=== PATIENT | female | born 1975 | race Caucasian/White ===

== ENCOUNTER 2016-08-18 15:29 | Emergency (ER) | payer SELFPAY ==
[2016-08-18 15:39] VITALS: BP 153/81
--- NOTE | 2016-08-18 15:42 | ER Document Report ---
ED Medical Screen (RME) - General Chief Complaint: Elbow Injury Stated Complaint: ELBOW PAIN Mode of Arrival: Ambulatory Information source: Patient Notes: Patient states 2 months ago she was diagnosed with tenderness although. Patient reports hitting her right elbow today while attempting to play [employer]. I have greeted and performed a rapid initial assessment of this patient. A comprehensive ED assessment and evaluation of the patient, analysis of test results and completion of the medical decision making process will be conducted by additional ED providers. TRAVEL OUTSIDE OF THE [place] IN LAST 30 DAYS: No - Related Data Allergies/Adverse Reactions: penicillin V potassium [From Pen-Vee K] Allergy (Verified 08/18/16 15:37) Past Medical History - Social History Chew tobacco use (# tins/day): No Frequency of alcohol use: None Drug Abuse: None Renal/ Medical History: Denies: Hx Peritoneal Dialysis Past Surgical History: Reports: Hx Tubal Ligation - Immunizations Immunizations up to date: Yes Hx Diphtheria, Pertussis, Tetanus Vaccination: Yes Physical Exam - Vital signs Vitals: Temp Pulse Resp BP Pulse Ox 98.2 F 93 20 153/81 H 96 08/18/16 15:38 08/18/16 15:38 08/18/16 15:38 08/18/16 15:38 08/18/16 15:38 - Extremities General upper extremity: Tender - Right elbow Course - Vital Signs Vital signs: Temp Pulse Resp BP Pulse Ox 98.2 F 93 20 153/81 H 96 08/18/16 15:38 08/18/16 15:38 08/18/16 15:38 08/18/16 15:38 08/18/16 15:38
--- NOTE | 2016-08-18 16:44 | ER Document Report ---
HPI - HPI Patient complains to provider of: hit right elbow Onset: This afternoon Onset/Duration: Sudden Quality of pain: Throbbing Pain Level: 4 Context: 40 yo female with chronic right elbow tendonitis hit it on a chair causing increased pain and swelling. Xray has already when done. Associated Symptoms: None Exacerbated by: Movement Relieved by: Denies - ROS ROS below otherwise negative: Yes Systems Reviewed and Negative: Yes All other systems reviewed and negative - REPRODUCTIVE Reproductive: DENIES: : - DERM Skin Color: Normal Past Medical History - General Information source: Patient - Social History Smoking Status: Current Every Day Smoker Chew tobacco use (# tins/day): No Frequency of alcohol use: None Drug Abuse: None Lives with: Family Family History: Reviewed & Not Pertinent, DM, Hypertension, Malignancy Patient has suicidal ideation: No Patient has homicidal ideation: No - Medical History Medical History: Negative Renal/ Medical History: Denies: Hx Peritoneal Dialysis Surgical Hx: Negative Past Surgical History: Reports: Hx Tubal Ligation - Immunizations Immunizations up to date: Yes Hx Diphtheria, Pertussis, Tetanus Vaccination: Yes Vertical Provider Document - CONSTITUTIONAL Agree With Documented VS: Yes Exam Limitations: No Limitations General Appearance: No Apparent Distress - INFECTION CONTROL TRAVEL OUTSIDE OF THE [place] IN LAST 30 DAYS: No - HEENT HEENT: Normocephalic - NECK Neck: Supple - RESPIRATORY O2 Sat by Pulse Oximetry: 96 - BACK Back: Normal Inspection - MUSCULOSKELETAL/EXTREMETIES Musculoskeletal/Extremeties: MAEW, FROM, Tender - medial right soft tissue, not red, not hot, not swollen, No Edema. negative: Eccymosis - NEURO Level of Consciousness: Awake, Alert Motor/Sensory: No Motor Deficit, No Sensory Deficit - DERM Integumentary: Warm, Dry, No Rash Notes: n/v intact, 2 + radial pulse Course - Vital Signs Vital signs: Temp Pulse Resp BP Pulse Ox 98.2 F 93 20 153/81 H 96 08/18/16 15:38 08/18/16 15:38 08/18/16 15:38 08/18/16 15:38 08/18/16 15:38 Procedures - Immobilization Right Arm Time completed: 16:50 Pre-Proc Neuro Vasc Exam: Normal Immobilizer type: Sling Performed by: PCT Post-Proc Neuro Vasc Exam: Normal Alignment checked and good: Yes Discharge - Discharge Clinical Impression: Contusion of right elbow Qualifiers: Encounter type: initial encounter Qualified Code(s): S50.01XA - Contusion of right elbow, initial encounter Condition: Good Disposition: HOME, SELF-CARE Instructions: Temporary Sling ([facility]), Ultram ([facility]) Additional Instructions: cool compress continue the naproxsyn sling for a few days see orthopedic doctor if persists Prescriptions: Tramadol HCl [Ultram 50 mg Tablet] 50 mg PO ASDIR PRN #20 tablet PRN Reason: Forms: Return to Work Referrals: ARDEN KNAPP MD [ACTIVE STAFF] - Follow up as needed
== END 2016-08-18 17:06 | disposition home or self-care (01) ==
LOC: ER 15:29
DX: S50.01XA Contusion of right elbow, initial encounter (principal); M25.521 Pain in right elbow; F17.200 Nicotine dependence, unspecified, uncomplicated; W22.03XA Walked into furniture, initial encounter; Z98.51 Tubal ligation status
CPT/HCPCS: 99283

== ENCOUNTER 2017-04-18 17:21 | Emergency (ER) | payer SELFPAY ==
[2017-04-18 17:27] VITALS: BP 148/84
--- NOTE | 2017-04-18 19:19 | ER Document Report ---
ED General - General Chief Complaint: Leg Swelling Stated Complaint: LEG SWELLING Time Seen by Provider: 04/18/17 17:36 TRAVEL OUTSIDE OF THE [place] IN LAST 30 DAYS: No - HPI Patient complains to provider of: Left leg swelling Notes: Patient is coming in for evaluation of left leg swelling. Patient states is been ongoing for greater than a month. Patient states left leg swelling off and on was evaluated back in August for swelling states had a Doppler done that time no signs of DVT. Patient is states that she is followed up with [facility] is been placed on hydrochlorothiazide to help relieve some swelling patient denies any injury to the leg. Patient states sometimes it will weep patient states that there are started becoming changes to her skin. Denies any fevers chills nausea vomiting denies any trauma to the leg. - Related Data Allergies/Adverse Reactions: penicillin V potassium [From Pen-Vee K] Allergy (Verified 04/18/17 17:27) Past Medical History - Social History Smoking Status: Current Every Day Smoker Chew tobacco use (# tins/day): No - 1ppd Frequency of alcohol use: Rare Drug Abuse: None Family History: Reviewed & Not Pertinent, DM, Hypertension, Malignancy Renal/ Medical History: Denies: Hx Peritoneal Dialysis Past Surgical History: Reports: Hx Tubal Ligation - Immunizations Immunizations up to date: Yes Hx Diphtheria, Pertussis, Tetanus Vaccination: Yes Review of Systems - Review of Systems Constitutional: No symptoms reported EENT: No symptoms reported Cardiovascular: No symptoms reported Respiratory: No symptoms reported Gastrointestinal: No symptoms reported Genitourinary: No symptoms reported Female Genitourinary: No symptoms reported Musculoskeletal: Leg swelling Skin: No symptoms reported Hematologic/Lymphatic: No symptoms reported Neurological/Psychological: No symptoms reported -: Yes All other systems reviewed and negative Physical Exam - Vital signs Vitals: Temp Pulse Resp BP Pulse Ox 98.5 F 89 18 148/84 H 97 04/18/17 17:26 04/18/17 17:26 04/18/17 17:26 04/18/17 17:26 04/18/17 17:26 Interpretation: Normal - General General appearance: Appears well, Alert - HEENT Head: Normocephalic, Atraumatic Eyes: Normal Pupils: PERRL - Respiratory Respiratory status: No respiratory distress Chest status: Nontender Breath sounds: Normal Chest palpation: Normal - Cardiovascular Rhythm: Regular Heart sounds: Normal auscultation Murmur: No - Abdominal Inspection: Normal Distension: No distension Bowel sounds: Normal Tenderness: Nontender Organomegaly: No organomegaly - Back Back: Normal, Nontender - Extremities General upper extremity: Normal inspection, Nontender, Normal color, Normal ROM , Normal temperature General lower extremity: Normal inspection, Nontender, Normal color, Normal ROM , Normal temperature, Normal weight bearing, Nallely's sign. No: Edema - Significant edema to both legs left leg greater than right. Patient has venous stasis changes. Patient's leg is quite swollen consistent with possible lymphedema. - Neurological Neuro grossly intact: Yes Cognition: Normal Orientation: AAOx4 [place] Coma Scale Eye Opening: Spontaneous [place] Coma Scale Verbal: Oriented Rhonda Coma Scale Motor: Obeys Commands Rhonda Coma Scale Total: 15 Speech: Normal Motor strength normal: LUE, RUE, LLE, RLE Sensory: Normal - Psychological Associated symptoms: Normal affect, Normal mood - Skin Skin Temperature: Warm Skin Moisture: Dry Skin Color: Normal Course - Re-evaluation Re-evalutation: 04/18/17 19:17 Doppler is negative no signs of cellulitis. Patient was educated about compression stockings or wrapping the leg and Omid bandage to help out with more likely underlying lymphedema. Patient will be discharged home follow-up primary care physician. - Vital Signs Vital signs: Temp Pulse Resp BP Pulse Ox 98.5 F 89 18 148/84 H 97 04/18/17 17:26 04/18/17 17:26 04/18/17 17:26 04/18/17 17:26 04/18/17 17:26 Discharge - Discharge Clinical Impression: Leg swelling Condition: Good Instructions: Lymphedema ([facility]), Dependent Edema ([facility]) Additional Instructions: Follow-up with primary care physician. Return to ER symptoms worsen. Your examination is consistent with possible developing lymphedema. I will discussed this with your primary care physician. Prescriptions: Compress.stocking,Knee,Reg,Lrg [Truform Compression Stocking] 1 each MC DAILY # 1 each
--- NOTE | 2017-04-19 11:38 | XCELERA REPORT ---
[address] [address] Lower Extremity Venous Evaluation Name: LORENA MATA Age: 41 yrs Gender: Female : 1975 Patient Status: Emergency Patient Location: ER Study Date: 04/18/2017 06:50 PM Procedure: Color flow and duplex imaging of the veins of the left lower extremity as well as the right Common Femoral vein. Reason For Study: left leg swelling Ordering Physician: CHRISTINE ORTIZ Performed By: Emmie Power Right Sided Venous Evaluation The right common femoral vein is fully compressible. Spontaneous and phasic flow is present in the right common femoral vein. Left Sided Venous Evaluation Normal vessel filling wall to wall, compression and augmentation as well as Colour flow down to the infrageniculate veins. Interpretation Summary No duplex evidence of DVT or obstruction in the left lower extremity nor in the right Common Femoral vein. : CHRISTINE ORTIZ > Gabe Swain
== END 2017-04-18 19:32 ==
LOC: ER 17:21
DX: M79.89 Other specified soft tissue disorders (principal); F17.210 Nicotine dependence, cigarettes, uncomplicated; Z88.0 Allergy status to penicillin; Z98.51 Tubal ligation status
CPT/HCPCS: 93971; 99283

== ENCOUNTER 2017-05-16 14:52 | Emergency (ER) | payer OTHER ==
[2017-05-16 15:05] VITALS: BP 157/83
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
== END 2017-05-16 17:01 | disposition home or self-care (01) ==
LOC: ER 14:52
DX: S16.1XXA Strain of muscle, fascia and tendon at neck level, initial encounter (principal); V89.2XXA Person injured in unspecified motor-vehicle accident, traffic, initial encounter; F17.200 Nicotine dependence, unspecified, uncomplicated; E78.00 Pure hypercholesterolemia, unspecified; I10 Essential (primary) hypertension; Z88.0 Allergy status to penicillin; Z98.51 Tubal ligation status
CPT/HCPCS: 99283

== ENCOUNTER → 2017-06-13 | Outpatient (CLI) | payer OTHER ==
--- NOTE | 2017-06-13 14:54 | RADIOLOGY REPORT (SQ) ---
EXAM DESCRIPTION: CT CHEST WITH COMPLETED DATE/TIME: 06/13/2017 1:58 pm REASON FOR STUDY: LUNG NODULES (R91.8) R91.8 OTHER NONSPECIFIC ABNORMAL FINDING OF LUNG FIELD COMPARISON: None. TECHNIQUE: CT scan of the chest performed using helical scanning technique with dynamic intravenous contrast injection. Images reviewed with lung, soft tissue and bone windows. Reconstructed coronal and sagittal MPR images reviewed. All images stored on PACS. All CT scanners at this facility use dose modulation, iterative reconstruction, and/or weight based d osing when appropriate to reduce radiation dose to as low as reasonably achievable (ALARA). [facility]: Dose Right [facility]: CareDose [facility]: Dose Right [facility]: Teradose 4D [facility]: Handprint CONTRAST TYPE AND DOSE: contrast/concentration: Isovue 370.00 mg/ml; Total Contrast Delivered: 80.0 ml; Total Saline Delivered: 55.0 ml RENAL FUNCTION: Creatinine 0.6 RADIATION DOSE: CT Rad equipment meets quality standard of care and radiation dose reduction techniq ues were employed. CTDIvol: 19.4 mGy. DLP: 708 mGy-cm. . LIMITATIONS: Body habitus. Beam hardening artifact. FINDINGS: LUNGS AND PLEURA: 2 mm ground-glass nodule left upper lobe image 30. No suspicious nodule s. No effusions. HILAR AND MEDIASTINAL STRUCTURES: No identified masses or abnormal nodes. HEART AND VASCULAR STRUCTURES: Cardiomegaly. No aneurysm or dissection. No central pulmonary emboli . No pericardial effusion. HARDWARE: None in the chest. UPPER ABDOMEN: No significant findings. Limited exam. THYROID AND OTHER SOFT TISSUES: No masses. No adenopathy. BONES: No significant finding. OTHER: No other significant finding. IMPRESSION: 2 mm ground-glass nodule left upper lobe. COMMENT: Fleischner Criteria for Ground Glass Nodules: <6mm ground glass single nodule: No routine followup TECHNICAL DOCUMENTATION: JOB ID: [id number] Quality ID # [id number]: Final reports with documentation of one or more dose reduction techniques (e.g., Au tomated exposure control, adjustment of the mA and/or kV according to patient size, use of iterative reconstruction technique) 2010 [employer]- All Rights Reserved
== END ==
LOC: RAD 12:55
PROVIDERS: ATTEND Family Medicine
DX: R91.1 Solitary pulmonary nodule (principal); I51.7 Cardiomegaly
CPT/HCPCS: 71260; 82565

== ENCOUNTER 2017-09-20 15:19 | Emergency (ER) | payer OTHER ==
[2017-09-20 15:25] VITALS: BP 162/70
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
--- NOTE | 2017-09-20 16:18 | RADIOLOGY REPORT (SQ) ---
EXAM DESCRIPTION: HAND LEFT 3 VIEWS COMPLETED DATE/TIME: 09/20/2017 4:07 pm REASON FOR STUDY: left hand pain s/p crush injury; 2nd-3rd digits COMPARISON: None. EXAM PARAMETERS: NUMBER OF VIEWS: Three views. TECHNIQUE: AP, lateral and oblique radiographic images acquired of the left hand. LIMITATIONS: None. FINDINGS: MINERALIZATION: Normal. BONES: No acute fracture or dislocation. No worrisome bone lesions. JOINTS: No effusions. SOFT TISSUES: No soft tissue swelling. No foreign body. OTHER: No other significant finding. IMPRESSION: NEGATIVE STUDY OF THE LEFT HAND. NO RADIOGRAPHIC EVIDENCE OF ACUTE INJURY. TECHNICAL DOCUMENTATION: JOB ID: [id number] [employer]- All Rights Reserved Reading location - IP/workstation name: [email or web address]
== END 2017-09-20 16:25 | disposition home or self-care (01) ==
LOC: ER 15:19
DX: S69.92XA Unspecified injury of left wrist, hand and finger(s), initial encounter (principal); W23.1XXA Caught, crushed, jammed, or pinched between stationary objects, initial encounter; E78.00 Pure hypercholesterolemia, unspecified; I10 Essential (primary) hypertension; Z98.51 Tubal ligation status
CPT/HCPCS: 99283

== ENCOUNTER 2020-06-02 18:34 | Emergency (ER) | payer OTHER ==
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
[2020-06-02 20:27] VITALS: BP 143/82
== END 2020-06-02 20:40 | disposition home or self-care (01) ==
LOC: ER 18:34
DX: M25.511 Pain in right shoulder (principal); M79.604 Pain in right leg; M25.561 Pain in right knee; M25.571 Pain in right ankle and joints of right foot; M54.6 Pain in thoracic spine; V89.2XXA Person injured in unspecified motor-vehicle accident, traffic, initial encounter; Z88.0 Allergy status to penicillin; I10 Essential (primary) hypertension; F17.200 Nicotine dependence, unspecified, uncomplicated
CPT/HCPCS: 72070; 99284